=== PATIENT | female | born 1980 | race American Indian/Alaskan Native ===

== ENCOUNTER 2017-07-26 18:09 | Emergency (ER) | payer MEDICAID ==
[2017-07-26 18:29] VITALS: BMI 42.7
--- NOTE | 2017-07-26 18:59 | C.PDOC ---
History Of Present Illness 36 year old female who presents to the ER with a complaint of left ankle pain and left hand pain after she tripped and fell yesterday while walking on an uneven sidewalk. Patient reports she scraped her arms in an attempt to protect herself; shes notes having pain with ambulation and movement of left thumb. Patient has been taking tylenol today; denies weakness or numbness. Time Seen by Provider: 07/26/17 18:37 Chief Complaint (Nursing): Lower Extremity Problem/Injury History Per: Patient History/Exam Limitations: no limitations Onset/Duration Of Symptoms: Hrs Current Symptoms Are (Timing): Still Present Recent travel outside of the [place]: No - Ankle/Foot Description Of Injury: Fell Currently Unable To: Bear Weight Past Medical History Reviewed: Historical Data, Nursing Documentation, Vital Signs Vital Signs: Last Vital Signs Temp 98.4 F 07/26/17 21:20 Pulse 75 07/26/17 21:20 Resp 18 07/26/17 21:20 BP 129/75 07/26/17 21:20 Pulse Ox 99 07/26/17 21:20 - Medical History PMH: Mitral Valve Prolapse Surgical History: No Surg Hx Family History: States: Unknown Family Hx - Social History Hx Tobacco Use: No Hx Alcohol Use: No Hx Substance Use: No - Immunization History Hx Tetanus Toxoid Vaccination: No Hx Influenza Vaccination: No Hx Pneumococcal Vaccination: No Review Of Systems Musculoskeletal: Positive for: Hand Pain, Foot Pain Skin: Positive for: Other (Scrapes) Neurological: Negative for: Weakness, Numbness Physical Exam - Physical Exam Appears: Non-toxic Skin: Warm, Dry Head: Atraumatic, Normacephalic Oral Mucosa: Moist Extremity: Tenderness (Left proximal first digit, left first metacarpal, and left snuff box area. To dorsal and medial aspect of left foot.), Capillary Refill (Good), No Deformity, No Swelling, Other (Healing scrapes to bilateral arms. ) Pulses: Left Dorsalis Pedis: Normal, Right Dorsalis Pedis: Normal Neurological/Psych: Oriented x3, Normal Speech, Normal Cognition, Normal Motor, Normal Sensation ED Course And Treatment O2 Sat by Pulse Oximetry: 100 (Room air) Pulse Ox Interpretation: Normal Medical Decision Making Medical Decision Making: Plan: Left ankle x-ray Left hand x-ray 856 pm xrays neg; with significant tenderness. pre-formed splint for left wrist and hand applied; posterior splint applied to left leg and crutch instructin given Disposition Counseled Patient/Family Regarding: Studies Performed, Diagnosis, Need For Followup, Rx Given - Disposition Referrals: John Cortez MD [Staff Provider] - Disposition: HOME/ ROUTINE Disposition Time: 20:59 Condition: STABLE Additional Instructions: Non weight bearing on left leg- use crutches. Keep splint clean and dry, do not get wet. Wear hand splint for comfort. Follow up with Dr Cortez in a few days. Take 650 mg of Tylenol every 6 hours for pain; take 1 Percocet every 6 hours for severe pain. Prescriptions: Hydrocodone/Acetaminophen [Nicasio 5-325 Tablet] 1 each PO Q6 PRN #6 tablet PRN Reason: Pain, Severe (8-10) Instructions: Ankle Sprain (ED), Finger Sprain (ED) Forms: [facility] (Jordanian), General Discharge Instructions - Clinical Impression Clinical Impression: Left ankle sprain, Left wrist sprain - Scribe Statement The provider has reviewed the documentation as recorded by the Scribgely Gallegos All medical record entries made by the Scribe were at my direction and personally dictated by me. I have reviewed the chart and agree that the record accurately reflects my personal performance of the history, physical exam, medical decision making, and the department course for this patient. I have also personally directed, reviewed, and agree with the discharge instructions and disposition.
[2017-07-26 21:19] VITALS: RESP 18
[2017-07-26 21:21] VITALS: BP 129/75; PULSE 75; TEMP 98.4
--- NOTE | 2017-07-27 10:25 | RAD ---
PROCEDURE: Left Hand Radiographs. HISTORY: s/p fall, snuffbox and thumb tenderness COMPARISON: None. FINDINGS: BONES: Normal. No fracture. JOINTS: Normal. No osteoarthritic changes. SOFT TISSUES: Normal. OTHER FINDINGS: None. IMPRESSION: Normal left hand radiographs.
--- NOTE | 2017-07-27 10:27 | RAD ---
PROCEDURE: Left Ankle Radiographs. HISTORY: prox foot/ankle pain, medial aspect COMPARISON: Left ankle series [id number] tear FINDINGS: BONES: Normal. No fracture. JOINTS: Normal. No osteoarthritis. Ankle mortise maintained. Talar dome intact SOFT TISSUES: Prior peripheral edema now resolved. No retained radiodense foreign body or emphysema soft tissue changes are identified. OTHER FINDINGS: None. IMPRESSION: Normal left ankle radiographs.
[2017-07-29 23:49] VITALS: O2SAT 100
== END 2017-07-26 21:21 | disposition home or self-care (01) ==
LOC: C.ER 18:09
DX: S93.402A Sprain of unspecified ligament of left ankle, initial encounter (principal); S63.502A Unspecified sprain of left wrist, initial encounter; W01.0XXA Fall on same level from slipping, tripping and stumbling without subsequent striking against object, initial encounter; Y93.01 Activity, walking, marching and hiking; Y92.480 Sidewalk as the place of occurrence of the external cause